=== PATIENT | male | born 1945 | race Caucasian/White ===

== ENCOUNTER 2019-03-10 14:53 | Emergency (ER) | payer MEDICARE, OTHER ==
[~2019-03-10] VITALS: Ht 195.6 cm; Wt 90.7 kg
--- OUTSIDE RECORDS SUMMARY | 2019-03-10 15:02 | XMS REPORT | Continuity of Care Document ---
Author Organization Unknown Address Unknown Allergies There is no data. Medications There is no data. Problems There is no data. Procedures There is no data. Results There is no data. Encounters ACCT No. Visit Date/Time Discharge Status Pt. Type Provider Facility Loc./Unit Complaint [id number] 01/15/2019 14:00:00 01/15/2019 23:59:59 CLS Outpatient SELF, YANET MARLEY [facility]
--- NOTE | 2019-03-10 15:21 | ED General ---
General Stated Complaint: PSYCH EVAL History of Present Illness Date Seen by Provider: Mar 10, 2019 Time Seen by Provider: 15:20 Initial Comments Patient presenting to the emergency department for evaluation of a suicidal comment that occurred earlier today. Patient is quite pleasant and composed and says that his son is going through a great deal of financial difficulty. The patient lives with his son and the patient made the comment to his son "would I just be better off ?" This son called his mother family members and they recommended bringing him to the emergency department. Patient says that this, and was made in the heat of the moment and he has no plan on harming himself. He says that he does have access to firearms however the son took away his firearms after he made this comment. The patient admits he has no need for firearms so this does not particularly bother him. He denies any medical complaints and he is in no obvious distress with normal vital signs. Allergies and Home Medications Patient Home Medication List Home Medication List Reviewed: Yes Review of Systems Review of Systems Constitutional: no symptoms reported Respiratory: no symptoms reported Cardiovascular: no symptoms reported All Other Systems Reviewed Negative Unless Noted: Yes Physical Exam Vital Signs Vital Signs - First Documented 03/10/19 15:35 Temp 96.5 Pulse 67 Resp 18 B/P (MAP) 146/89 (108) Pulse Ox 99 O2 Delivery Room Air Capillary Refill : Height, Weight, BMI Height: '" Weight: lbs. oz. kg; BMI Method: General Appearance: No Apparent Distress, WD/WN HEENT: PERRL/EOMI Neck: Supple Respiratory: No Respiratory Distress Cardiovascular: Regular Rate, Rhythm Gastrointestinal: Soft Back: Normal Inspection Neurologic/Psychiatric: Alert, Oriented x3 Skin: Normal Color, Warm/Dry Progress/Results/Core Measures Suspected Sepsis SIRS Temperature: Pulse: Respiratory Rate: Laboratory Tests 03/10/19 11:50: White Blood Count 7.0 Blood Pressure / Mean: Laboratory Tests 03/10/19 11:50: Creatinine 0.82, Platelet Count 243, Total Bilirubin 1.1H Results/Orders Lab Results Laboratory Tests Test 03/10/19 11:50 03/10/19 16:03 Range/Units White Blood Count 7.0 4.3-11.0 10^3/uL Red Blood Count 5.02 4.35-5.85 10^6/uL Hemoglobin 14.5 13.3-17.7 G/DL Hematocrit 43 40-54 % Mean Corpuscular Volume 86 80-99 FL Mean Corpuscular Hemoglobin 29 25-34 PG Mean Corpuscular Hemoglobin Concent 34 32-36 G/DL Red Cell Distribution Width 13.7 10.0-14.5 % Platelet Count 243 130-400 10^3/uL Mean Platelet Volume 10.3 7.4-10.4 FL Neutrophils (%) (Auto) 72 42-75 % Lymphocytes (%) (Auto) 17 12-44 % Monocytes (%) (Auto) 7 0-12 % Eosinophils (%) (Auto) 2 0-10 % Basophils (%) (Auto) 1 0-10 % Neutrophils # (Auto) 5.0 1.8-7.8 X 10^3 Lymphocytes # (Auto) 1.2 1.0-4.0 X 10^3 Monocytes # (Auto) 0.5 0.0-1.0 X 10^3 Eosinophils # (Auto) 0.2 0.0-0.3 10^3/uL Basophils # (Auto) 0.1 0.0-0.1 10^3/uL Sodium Level 133 L 135-145 MMOL/L Potassium Level 4.2 3.6-5.0 MMOL/L Chloride Level 95 L 98-107 MMOL/L Carbon Dioxide Level 25 21-32 MMOL/L Anion Gap 13 5-14 MMOL/L Blood Urea Nitrogen 9 7-18 MG/DL Creatinine 0.82 0.60-1.30 MG/DL Estimat Glomerular Filtration Rate > 60 BUN/Creatinine Ratio 11 Glucose Level 114 H 70-105 MG/DL Calcium Level 9.8 8.5-10.1 MG/DL Corrected Calcium 9.5 8.5-10.1 MG/DL Total Bilirubin 1.1 H 0.1-1.0 MG/DL Aspartate Amino Transf (AST/SGOT) 13 5-34 U/L Alanine Aminotransferase (ALT/SGPT) 11 0-55 U/L Alkaline Phosphatase 81 40-136 U/L Total Protein 7.1 6.4-8.2 GM/DL Albumin 4.4 3.2-4.5 GM/DL Salicylates Level < 0.3 L 5.0-20.0 MG/DL Acetaminophen Level < 10 L 10-30 UG/ML Serum Alcohol < 10 <10 MG/DL Urine Color YELLOW Urine Clarity CLEAR Urine pH 6.0 5-9 Urine Specific [place] <1.005 1.016-1.022 Urine Protein NEGATIVE NEGATIVE Urine Glucose (UA) NEGATIVE NEGATIVE Urine Ketones NEGATIVE NEGATIVE Urine Nitrite NEGATIVE NEGATIVE Urine Bilirubin NEGATIVE NEGATIVE Urine Urobilinogen 0.2 NORMAL MG/DL Urine Leukocyte Esterase NEGATIVE NEGATIVE Urine RBC (Auto) NEGATIVE NEGATIVE Urine RBC NONE /HPF Urine WBC NONE /HPF Urine Squamous Epithelial Cells RARE /HPF Urine Crystals NONE /LPF Urine Bacteria NONE /HPF Urine Casts NONE /LPF Urine Mucus NEG /LPF Urine Culture Indicated NO Urine Opiates Screen NEGATIVE NEGATIVE Urine Oxycodone Screen NEGATIVE NEGATIVE Urine Methadone Screen NEGATIVE NEGATIVE Urine Propoxyphene Screen NEGATIVE NEGATIVE Urine Barbiturates Screen NEGATIVE NEGATIVE Ur Tricyclic Antidepressants Screen NEGATIVE NEGATIVE Urine Phencyclidine Screen NEGATIVE NEGATIVE Urine Amphetamines Screen NEGATIVE NEGATIVE Urine Methamphetamines Screen NEGATIVE NEGATIVE Urine Benzodiazepines Screen POSITIVE H NEGATIVE Urine Cocaine Screen NEGATIVE NEGATIVE Urine Cannabinoids Screen NEGATIVE NEGATIVE My Orders Orders - SERGE MANNING DO Acetaminophen (03/10/19 15:36) Salicylate (03/10/19 15:36) Ua Culture If Indicated (03/10/19 15:36) Cbc With Automated Diff (03/10/19 15:36) Comprehensive Metabolic Panel (03/10/19 15:36) Alcohol (03/10/19 15:36) Drug Screen Stat (Urine) (03/10/19 15:36) Vital Signs/I&O 03/10/19 15:35 Temp 96.5 Pulse 67 Resp 18 B/P (MAP) 146/89 (108) Pulse Ox 99 O2 Delivery Room Air Capillary Refill : Progress Note : Progress Note Patient is medically cleared from my standpoint we will have the psychiatric services screen him and make further disposition planning. Screener felt patient was safe from psych standpoint so patient will be discharged in stable condition. Departure Impression Primary Impression: Suicidal ideation Disposition: 01 HOME, SELF-CARE Condition: Stable Departure-Patient Inst. Referrals: SELF,YANET OLIVIA (PCP/Family) Primary Care Physician Patient Instructions: Suicide Prevention SERGE MANNING DO Mar 10, 2019 15:21
--- NOTE | 2019-03-10 15:57 | NUR ---
MIC was called for screening. Spoke to Earnest and informed him of pt needing psych eval and what lead pt to coming to ER.
[2019-03-10 16:11] LABS: HEMATOCRIT 43 % (40-54); HEMOGLOBIN 14.5 G/DL (13.3-17.7); MEAN CORPUSCULAR HEMOGLOBIN 29 PG (25-34); MEAN CORPUSCULAR HGB CONC 34 G/DL (32-36); MEAN CORPUSCULAR VOLUME 86 FL (80-99)
[2019-03-10 16:12] LABS: BASOPHILS # (AUTO) 0.1 10^3/uL (0.0-0.1); BASOPHILS % (AUTO) 1 % (0-10); EOSINOPHILS # (AUTO) 0.2 10^3/uL (0.0-0.3); EOSINOPHILS % (AUTO) 2 % (0-10); LYMPHOCYTES # (AUTO) 1.2 X 10^3 (1.0-4.0); LYMPHOCYTES % (AUTO) 17 % (12-44); MEAN PLATELET VOLUME 10.3 FL (7.4-10.4); MONOCYTES # (AUTO) 0.5 X 10^3 (0.0-1.0); MONOCYTES % (AUTO) 7 % (0-12); NEUTROPHILS % (AUTO) 72 % (42-75); PLATELET COUNT 243 10^3/uL (130-400); RED CELL DISTRIBUTION WIDTH 13.7 % (10.0-14.5)
[2019-03-10 16:15] LABS: BILIRUBIN,URINE NEGATIVE (NEGATIVE); CLARITY,URINE CLEAR; COLOR,URINE YELLOW; GLUCOSE, URINE (UA) NEGATIVE (NEGATIVE); KETONES,URINE NEGATIVE (NEGATIVE); LEUKOCYTE ESTERASE ,URINE NEGATIVE (NEGATIVE); NITRITE,URINE NEGATIVE (NEGATIVE); PROTEIN,URINE NEGATIVE (NEGATIVE); SQUAMOUS EPITHELIAL CELL,UR RARE /HPF; UROBILINOGEN,URINE 0.2 MG/DL (NORMAL)
[2019-03-10 16:18] LABS: BUN/CREATININE RATIO 11; CARBON DIOXIDE 25 MMOL/L (21-32); CHLORIDE 95 MMOL/L (98-107); POTASSIUM 4.2 MMOL/L (3.6-5.0); SODIUM 133 MMOL/L (135-145)
[2019-03-10 16:19] LABS: ACETAMINOPHEN < 10 UG/ML (10-30); ALANINE AMINOTRANSFERASE 11 U/L (0-55); ALBUMIN 4.4 GM/DL (3.2-4.5); ALKALINE PHOSPHATASE 81 U/L (40-136); BILIRUBIN,TOTAL 1.1 MG/DL (0.1-1.0); CALCIUM 9.8 MG/DL (8.5-10.1); CREATININE SERUM 0.82 MG/DL (0.60-1.30); GFR ESTIMATED > 60; GLUCOSE 114 MG/DL (70-105); SALICYLATE < 0.3 MG/DL (5.0-20.0); TOTAL PROTEIN 7.1 GM/DL (6.4-8.2)
[2019-03-10 16:20] LABS: BENZODIAZEPINES SCREEN URINE POSITIVE (NEGATIVE)
[2019-03-10 16:21] LABS: AMPHETAMINE SCREEN, URINE NEGATIVE (NEGATIVE); BARBITURATE SCREEN URINE NEGATIVE (NEGATIVE); CANNABINOID SCREEN, URINE NEGATIVE (NEGATIVE); COCAINE SCREEN URINE NEGATIVE (NEGATIVE); METHADONE STAT NEGATIVE (NEGATIVE); METHAMPHETAMINE SCREEN URINE S NEGATIVE (NEGATIVE); OPIATE SCREEN URINE NEGATIVE (NEGATIVE); OXYCODONE STAT NEGATIVE (NEGATIVE); PROPOXYPHENE STAT NEGATIVE (NEGATIVE); TRICYCLIC ANTIDEPRESSANTS SCRE NEGATIVE (NEGATIVE)
--- NOTE | 2019-03-10 16:33 | NUR ---
Up to bathroom, escorted patient to public bathroom in ER.
--- NOTE | 2019-03-10 16:54 | NUR ---
Biju with [facility] called and stated with it being close to 5pm that we will need to call [facility].
--- NOTE | 2019-03-10 16:55 | NUR ---
Pam was called at this time for screening. This RN spoke to Chloe and information about the patient and situation was provided. She stated few patients ahead of pt. She needed labs, medications, and facesheet faxed to [phone]. Tracking number [id number]
--- NOTE | 2019-03-10 18:18 | NUR ---
Rosas with [facility] at [facility] to [facility] Zoom ID [phone]. Pt is currently talking with Rosas via zoom/phone
--- NOTE | 2019-03-10 18:34 | NUR ---
Pt came out of room and said they were done. Pt stated that he is going home and going to get safety plan.
--- NOTE | 2019-03-10 18:55 | NUR ---
Report given to KORINA Sutton at this time. Care was transferred.
[2019-03-10 19:02] VITALS: BP 127/87
== END 2019-03-10 19:02 | disposition home or self-care (01) ==
LOC: EDUNIT# 14:53 → ER FS 14:56
DX: R45.851 Suicidal ideations (principal)
CPT/HCPCS: 36415; 80053; 80306; 80320; 80329; 81000; 85025; 99283

== ENCOUNTER 2021-05-13 09:57 | Emergency (ER) | payer MEDICARE, OTHER ==
[~2021-05-13] VITALS: Ht 197 cm; Wt 105.0 kg
--- OUTSIDE RECORDS SUMMARY | 2021-05-13 10:02 | XMS REPORT | Clinical Summary ---
Author Author [facility] Organization [facility] Address Unknown Phone Unavailable Care Team Providers Care Pr Specialist Name Role Phone Isaac Coppola MD PCP Allergies Not on File Medications End Date Status Medication Sig Dispensed Refills Start Date Active escitalopram oxalate take 1 tablet 1 0 (LEXAPRO) 20 MG tablet by oral route 4 every day Active DULoxetine (CYMBALTA) 60 take 2 tablet 1 0 MG capsule by oral route 4 every day Active metoprolol tartrate take 1.5 90 11 (LOPRESSOR) 50 MG tablet Tablet (75MG) 3 by oral route 2 times every day with meals Active acetaminophen 650 mg Tab take 1 tablet 1 0 (650MG) by 3 oral route every 6 hours as needed Active OLANZapine (ZYPREXA) 5 MG take 1 tablet 1 0 tablet (5MG) by 3 oral route every day Active tamsulosin (FLOMAX) 0.4 take 1 1 0 mg Cp24 Capsule 3 (0.4MG) by oral route every evening 1/2 hour following the same meal each day Active rosuvastatin (CRESTOR) 10 take 1 tablet 1 0 MG tablet (10MG) by 3 oral route every day Active warfarin (COUMADIN) 3 MG take 1 tablet 1 0 tablet (3MG) by 3 oral route every day Active LORazepam (ATIVAN) 2 MG take 1 tablet 1 0 tablet (2MG) by 3 ORAL route 3 times daily as needed Active Problems Not on file Family History Medical History Relation Name Comments Other Father Diagnosed with A-fi b Relation Name Status Comments Father Social History Date Tobacco Use Types Packs/Day Years Used Never Assessed Sex Assigned at Date Recorded Not on file Last Filed Vital Signs Reading Time Taken Comments Vital Sign 120/72 08/21/2014 2:19 PM [facility] Blood Pressure 58 08/21/2014 2:19 PM [facility] Pulse - - Temperature - - Respiratory Rate - - Oxygen Saturation - - Inhaled Oxygen Concentration 106.5 kg (234 lb 12.8 oz) 08/21/2014 2:19 PM [facility] overweight Weight 198.1 cm (6' 6") 08/21/2014 2:19 PM [facility] Height 27.13 08/21/2014 2:19 PM [facility] Body Mass Index Plan of Treatment Health Maintenance Due Date Last Done Comments Td/Tdap# 1945 Zoster Vaccine# (1 of 2) 1995 Fall Risk Assessment # 2010 Pneumococcal Vaccine: 65+ 2010 Years (1 of 1 - PPSV23) Influenza Vaccine (#1) 2021 Results Not on filefrom Last 3 Months
--- NOTE | 2021-05-13 10:15 | ED General ---
General Stated Complaint: GEN WEAKNESS Source of Information: Patient, EMS History of Present Illness Date Seen by Provider: May 13, 2021 Time Seen by Provider: 09:49 Initial Comments 76-year-old male presenting by EMS from home due to generally not feeling well. He states that he has been getting easily winded with minimal exertion. Especially when it is hot outside he does not do very much. He states that the heat makes him feel sick. He denies pain but has been short of breath. He denies fever, chills, swelling in extremities. He had some nausea this am but no vomiting. No diarrhea or change in bowels. No pain with urination. He reports he is here because his son wanted him to do something today and when he told his son he was not feeling up to doing that his son called 911 and had ambulance come to bring him to the ED because he wanted checked for Covid. He has a chronic cough that is no worse than usual. Associated Systoms: No Chest Pain; Cough (chronic and no change from usual); No Diaphoresis, No Fever/Chills, No Headaches; Malaise; No Seizure; Shortness of Air; No Syncope; Weakness (general) Allergies and Home Medications Allergies Coded Allergies: No Known Drug Allergies (Unverified , 05/13/21) Home Medications Azithromycin 250 Mg Tablet, 250 MG PO UD TAKE 2 TABLETS ON DAY ONE THEN TAKE 1 TABLET DAILY FOR FOUR MORE DAYS Prescribed by: YULY JUAREZ on 05/13/211446 Furosemide 40 Mg Tablet, 40 MG PO DAILY Prescribed by: YULY JUAREZ on 05/13/21 144 Potassium Chloride 20 Meq Tablet.er, 20 MEQ PO DAILY Take with Furosemide Prescribed by: YULY JUAREZ on 05/13/21 144 Patient Home Medication List Home Medication List Reviewed: Yes Review of Systems Review of Systems Constitutional: No chills, No fever EENTM: no symptoms reported Respiratory: see HPI Cardiovascular: no symptoms reported Gastrointestinal: no symptoms reported Genitourinary: no symptoms reported Musculoskeletal: no symptoms reported Skin: no symptoms reported Psychiatric/Neurological: No Symptoms Reported Hematologic/Lymphatic: Easy Bleeding (taking Warfarin), Easy Bruising (Taking Warfarin) Past Qmxqxnn-[id number]-Gxxpbj Hx Seasonal Allergies Seasonal Allergies: No Past Medical History Surgeries: No Respiratory: Yes Pulmonary Embolism Cardiac: Yes (Heart attack (he said thats what they called it but no surgery)) Atrial Fibrillation, High Cholesterol, Hypertension Neurological: No Genitourinary: No Gastrointestinal: Yes (GI Bleed) Endocrine: No HEENT: No Cancer: No Psychosocial: Yes Depression Integumentary: No Blood Disorders: No Physical Exam Vital Signs Vital Signs - First Documented 05/13/21 10:00 Temp 36.5 Pulse 80 Resp 18 B/P (MAP) 138/92 (107) Pulse Ox 95 O2 Delivery Room Air Capillary Refill : Height, Weight, BMI Height: 6'5.00" Weight: 200lbs. 0oz. 90.011721wk; BMI Method:Stated General Appearance: No Apparent Distress, WD/WN HEENT: Pharynx Normal Neck: Full Range of Motion, Normal Inspection, Non Tender, Supple Respiratory: Chest Non Tender, No Accessory Muscle Use, No Respiratory Distress, Crackles (bases) Cardiovascular: Normal Peripheral Pulses, Irregularly Irregular Gastrointestinal: Normal Bowel Sounds, No Pulsatile Mass, Non Tender, Soft Rectal: Deferred Extremity: Normal Capillary Refill, Normal Inspection, No Pedal Edema Neurologic/Psychiatric: Alert, Oriented x3, No Motor/Sensory Deficits, security systems sales representative II- XII Norm as Tested Skin: Normal Color, Warm/Dry Progress/Results/Core Measures Suspected Sepsis SIRS Temperature: Pulse: Respiratory Rate: Laboratory Tests 05/13/21 10:11: White Blood Count 7.7 Blood Pressure / Mean: Laboratory Tests 05/13/21 10:11: Creatinine 1.02, INR Comment 2.1H, Platelet Count 279, Total Bilirubin 1.1H Results/Orders Lab Results Laboratory Tests Test 05/13/21 10:11 05/13/21 10:39 Range/Units White Blood Count 7.7 4.3-11.0 10^3/uL Red Blood Count 4.47 4.30-5.52 10^6/uL Hemoglobin 13.1 L 13.3-17.7 g/dL Hematocrit 41 40-54 % Mean Corpuscular Volume 91 80-99 fL Mean Corpuscular Hemoglobin 29 25-34 pg Mean Corpuscular Hemoglobin Concent 32 32-36 g/dL Red Cell Distribution Width 14.1 10.0-14.5 % Platelet Count 279 130-400 10^3/uL Mean Platelet Volume 9.9 9.0-12.2 fL Immature Granulocyte % (Auto) 0 % Neutrophils (%) (Auto) 74 42-75 % Lymphocytes (%) (Auto) 11 L 12-44 % Monocytes (%) (Auto) 12 0-12 % Eosinophils (%) (Auto) 2 0-10 % Basophils (%) (Auto) 1 0-10 % Neutrophils # (Auto) 5.7 1.8-7.8 X 10^3 Lymphocytes # (Auto) 0.9 L 1.0-4.0 X 10^3 Monocytes # (Auto) 0.9 0.0-1.0 X 10^3 Eosinophils # (Auto) 0.1 0.0-0.3 10^3/uL Basophils # (Auto) 0.1 0.0-0.1 10^3/uL Immature Granulocyte # (Auto) 0.0 0.0-0.1 10^3/uL Prothrombin Time 23.5 H 12.2-14.7 SEC INR Comment 2.1 H 0.8-1.4 Activated Partial Thromboplast Time 53 H 24-35 SEC Sodium Level 134 L 135-145 MMOL/L Potassium Level 5.0 3.6-5.0 MMOL/L Chloride Level 95 L 98-107 MMOL/L Carbon Dioxide Level 28 21-32 MMOL/L Anion Gap 11 5-14 MMOL/L Blood Urea Nitrogen 14 7-18 MG/DL Creatinine 1.02 0.60-1.30 MG/DL Estimat Glomerular Filtration Rate 71 BUN/Creatinine Ratio 14 Glucose Level 99 70-105 MG/DL Calcium Level 9.6 8.5-10.1 MG/DL Corrected Calcium 9.3 8.5-10.1 MG/DL Magnesium Level 1.9 1.6-2.4 MG/DL Total Bilirubin 1.1 H 0.1-1.0 MG/DL Aspartate Amino Transf (AST/SGOT) 16 5-34 U/L Alanine Aminotransferase (ALT/SGPT) 13 0-55 U/L Alkaline Phosphatase 89 40-136 U/L Troponin I < 0.30 <0.30 NG/ML Pro-B-Type Natriuretic Peptide 4349.0 H <75.0 PG/ML Total Protein 6.9 6.4-8.2 GM/DL Albumin 4.4 3.2-4.5 GM/DL Lipase 16 8-78 U/L Urine Color YELLOW Urine Clarity CLEAR Urine pH 5.5 5-9 Urine Specific [place] 1.010 L 1.016-1.022 Urine Protein NEGATIVE NEGATIVE Urine Glucose (UA) NEGATIVE NEGATIVE Urine Ketones NEGATIVE NEGATIVE Urine Nitrite NEGATIVE NEGATIVE Urine Bilirubin NEGATIVE NEGATIVE Urine Urobilinogen 0.2 < = 1.0 MG/DL Urine Leukocyte Esterase NEGATIVE NEGATIVE Urine RBC (Auto) NEGATIVE NEGATIVE Urine RBC NONE /HPF Urine WBC 0-2 /HPF Urine Squamous Epithelial Cells 0-2 /HPF Urine Crystals NONE /LPF Urine Bacteria NEGATIVE /HPF Urine Casts PRESENT /LPF Urine Hyaline Casts 0-2 H /LPF Urine Mucus NEGATIVE /LPF Urine Culture Indicated NO My Orders Orders - YULY JUAREZ MD Cbc With Automated Diff (05/13/21 10:06) Magnesium (05/13/21 10:06) Chest 1 View Ap/Pa Only (05/13/21 10:06) Ekg Tracing (05/13/21 10:06) Comprehensive Metabolic Panel (05/13/21 10:06) Protime With Inr (05/13/21 10:06) Partial Thromboplastin Time (05/13/21 10:06) O2 (05/13/21 10:06) Monitor-Rhythm Ecg Trace Only (05/13/21 10:06) Ed Iv/Invasive Line Start (05/13/21 10:06) Lipase (05/13/21 10:06) Ua Culture If Indicated (05/13/21 10:06) Probnp Fs (05/13/21 10:06) Troponin I Fs (05/13/21 10:06) Ct Chest W (05/13/21 10:49) Iohexol Injection (Omnipaque 350 Mg/Ml 1 (05/13/21 12:30) Received Contrast (Hold Metformin- Contr (05/13/21 12:30) Sodium Chloride Flush (Catheter Flush Sy (05/13/21 12:30) Ns (Ivpb) (Sodium Chloride 0.9% Ivpb Bag (05/13/21 12:30) Medications Given in ED Current Medications Medications Dose Ordered Sig/Patty Route Start Time Stop Time Status Last Admin Dose Admin Iohexol 100 ml ONCE ONCE IV 05/13/21 12:30 05/13/21 12:31 DC 05/13/21 12:46 75 ML Sodium Chloride 10 ml NEEDED PRN IV 05/13/21 12:30 05/13/21 14:50 DC 05/13/21 12:46 10 ML Sodium Chloride 100 ml ONCE ONCE IV 05/13/21 12:30 05/13/21 12:31 DC 05/13/21 12:46 100 ML Vital Signs/I&O 05/13/21 05/13/21 10:00 15:00 Temp 36.5 Pulse 80 81 Resp 18 18 B/P (MAP) 138/92 (107) 139/84 Pulse Ox 95 96 O2 Delivery Room Air Room Air Capillary Refill : Progress Note #1: Progress Note Check labs, ECG, CXR, Urine, cardiac enzymes. Differential diagnosis includes pneumonia, CHF exacerbation, myocardial i nfarction, renal failure, electrolyte imbalance Progress Note #2: Progress Note Labs are stable without acute significant malady on his CBC or chemistry. He had no elevation of his white blood cell count. His cardiac enzymes showed elevated proBNP to go along with heart failure. His plain film chest x-ray showed pulmonary edema and questionable mass in the left base. CT was recommended. Updated patient on results and findings and that we will perform a CT scan to evaluate the area in the left base of his lung. Progress Note #3: Progress Note The CT scan came back showing pulmonary edema and unable to completely rule out underlying pneumonia. His possible mass in the left base appeared to be more slightly raised left hemidiaphragm and pleural effusion rather than true mass or tumor. Updated patient on these findings and with his O2 saturation staying in the mid to upper 90% range will start on diuretic and potassium supplement. Since radiology cannot rule out possible underlying pneumonia we will also do a short course of Zithromax or Z-Jan. Counseled on follow-up and return precau tions and stressed importance of see Dr. Bah and or cardiology in the next 1 to 2 weeks. ECG Initial ECG Impression Date: May 13, 2021 Initial ECG Impression Time: 10:03 Initial ECG Rate: 76 Initial ECG Rhythm: A Fib/Flutter Initial ECG Comparisson: No Previous ECG Available Comment Atrial fibrillation with a heart rate of 76 bpm. Borderline prolonged QT interval 428 ms and a QTc interval [address] elevation. No prior tracing available for comparison. Diagnostic Imaging Diagonstic Imaging: Xray Plain Films/CT/US/NM/MRI: chest [facility] [place], [place] NAME: JESUS BOONE REC#: [id number] PT STATUS: REG ER : 1945 PHYSICIAN: YULY JUAREZ MD ADMIT DATE: 05/13/21/ER FS Signed Date of Exam:05/13/21 CHEST 1 VIEW AP/PA ONLY INDICATION: Shortness of breath Portable chest 9:59 AM There is cardiomegaly with pulmonary vascular congestion. There is opacity in the left lower lung of uncertain origin. Mass versus infiltrate are possibilities. IMPRESSION: Pulmonary venous hypertension. Questionable mass versus infiltrate left lower lung. Further evaluation with CT should be considered. Dictated by: Dictated on workstation # [id number] Dict: 05/13/21 1021 Trans: 05/13/21 1145 CVB [id number] Interpreted by: BRIAN LIMA MD Electronically signed by: BRIAN LIMA MD 05/13/21 1145 Reviewed: Reviewed by Wy Diagonstic Imaging: CT Plain Films/CT/US/NM/MRI: chest Comments [facility] [place] [place] NAME: JESUS BOONE [facility] REC#: [id number] PT STATUS: REG ER : 1945 PHYSICIAN: YULY JUAREZ MD ADMIT DATE: 05/13/21/ER FS Signed Date of Exam:05/13/21 CT CHEST W EXAMINATION: CT chest with intravenous contrast. TECHNIQUE: Multiple contiguous axial images were obtained through the chest after the uneventful administration of intravenous contrast. All CT scans use one or more of the following dose optimizing techniques: automated exposure control, MA and/or KvP adjustment based on patient size and exam type or iterative reconstruction. HISTORY: Shortness of breath, lung lesion evaluation. COMPARISON: Chest radiograph 05/13/2021. FINDINGS: Evaluation is limited secondary to patient respiratory motion throughout the exam. Thyroid: The thyroid is normal. Mediastinum: Heart size is normal without significant pericardial effusion. The aorta is normal in caliber. No suspicious lymphadenopathy. Lungs and airways: There are bilateral pleural effusions with adjacent atelectasis or consolidation. There appears to be mild groundglass opacities within the lungs. There is no pneumothorax. The airways are normal. Upper abdomen: The subphrenic structures are normal. Musculoskeletal: Degenerative changes of the spine without suspicious osseous lesion or compression fracture. IMPRESSION: 1. Limited evaluation secondary to respiratory motion. Bilateral pleural effusions with adjacent atelectasis or consolidation. 2. Possible groundglass opacities within the lungs which can be seen with pneumonia. 3. Masslike appearance in the left lung seen on prior radiograph likely corresponds to elevation of the left hemidiaphragm with combination of pleural effusion and consolidation. Dictated by: Dictated on workstation # [id number] Dict: 05/13/21 1300 Trans: 05/13/21 1346 [facility] [id number] Interpreted by: YUSUF LIMA DO Electronically signed by: YUSUF LIMA DO 05/13/21 1346 Reviewed: Reviewed by Me Departure Impression Primary Impression: Dyspnea on exertion Additional Impressions: Congestive heart failure Qualified Codes: I50.9 - Heart failure, unspecified Pulmonary edema with congestive heart failure Disposition: HOME, SELF-CARE Condition: Improved Departure-Patient Inst. Decision time for Depature: 14:48 Referrals: JANNY CHAVIRA MD, MAXWELL MD (PCP/Family) Primary Care Physician Patient Instructions: Heart Failure ED, Shortness of Breath, Adult ED Add. Discharge Instructions: Take the diuretic water pill (Furosemide) to help with fluid on your lungs and improve your breathing. This can lower your potassium so you need to take a potassium supplement with it. Since the radiologist saw fluid on your lungs from the heart failure they could not completely rule out a pneumonia or lung infection causing part of your symptoms too so take the short course of antibiotics to treat for possible lung infection. Check with Dr. Bah this next week and he may have you see Cardiology or have an Echocardiogram (Ultrasound) of your heart to determine the extent of your heart failure. If your symptoms worsen and are not improving with treatment then return otherwise follow up this next week with Dr. Bah. Scripts Potassium Chloride (Potassium Chloride) 20 Meq Tablet.er 20 MEQ PO DAILY for 30 Days, #30 TAB 0 Refills Take with Furosemide Prov: YULY JUAREZ MD 05/13/21 Azithromycin (Azithromycin) 250 Mg Tablet 250 MG PO UD for 5 Days, #6 TAB 0 Refills TAKE 2 TABLETS ON DAY ONE THEN TAKE 1 TABLET DAILY FOR FOUR MORE DAYS Prov: YULY JUAREZ MD 05/13/21 Furosemide (Furosemide) 40 Mg Tablet 40 MG PO DAILY for heart failure for 30 Days, #30 TAB 0 Refills Prov: YULY JUAREZ MD 05/13/21 YULY JUAREZ MD May 13, 2021 10:15
[2021-05-13 10:23] LABS: HEMATOCRIT 41 % (40-54); HEMOGLOBIN 13.1 g/dL (13.3-17.7); MEAN CORPUSCULAR HEMOGLOBIN 29 pg (25-34); MEAN CORPUSCULAR HGB CONC 32 g/dL (32-36); MEAN CORPUSCULAR VOLUME 91 fL (80-99); MEAN PLATELET VOLUME 9.9 fL (9.0-12.2); PLATELET COUNT 279 10^3/uL (130-400); WHITE BLOOD COUNT 7.7 10^3/uL (4.3-11.0)
[2021-05-13 10:24] LABS: BASOPHILS # (AUTO) 0.1 10^3/uL (0.0-0.1); BASOPHILS % (AUTO) 1 % (0-10); EOSINOPHILS # (AUTO) 0.1 10^3/uL (0.0-0.3); EOSINOPHILS % (AUTO) 2 % (0-10); LYMPHOCYTES # (AUTO) 0.9 X 10^3 (1.0-4.0); LYMPHOCYTES % (AUTO) 11 % (12-44); MONOCYTES # (AUTO) 0.9 X 10^3 (0.0-1.0); MONOCYTES % (AUTO) 12 % (0-12); NEUTROPHILS # (AUTO) 5.7 X 10^3 (1.8-7.8); NEUTROPHILS % (AUTO) 74 % (42-75)
--- NOTE | 2021-05-13 10:24 | Diagnostic Imaging Report ---
INDICATION: Shortness of breath Portable chest 9:59 AM There is cardiomegaly with pulmonary vascular congestion. There is opacity in the left lower lung of uncertain origin. Mass versus infiltrate are possibilities. IMPRESSION: Pulmonary venous hypertension. Questionable mass versus infiltrate left lower lung. Further evaluation with CT should be considered. Dictated by: Dictated on workstation # [id number]
[2021-05-13 10:46] LABS: INR 2.1 (0.8-1.4); PROTHROMBIN TIME PATIENT 23.5 SEC (12.2-14.7)
[2021-05-13 10:52] LABS: BACTERIA,URINE NEGATIVE /HPF; BILIRUBIN,URINE NEGATIVE (NEGATIVE); CLARITY,URINE CLEAR; COLOR,URINE YELLOW; GLUCOSE, URINE (UA) NEGATIVE (NEGATIVE); HYALINE CASTS, URINE 0-2 /LPF; KETONES,URINE NEGATIVE (NEGATIVE); LEUKOCYTE ESTERASE ,URINE NEGATIVE (NEGATIVE); NITRITE,URINE NEGATIVE (NEGATIVE); PH,URINE 5.5 (5-9); PROTEIN,URINE NEGATIVE (NEGATIVE); SQUAMOUS EPITHELIAL CELL,UR 0-2 /HPF; WBC,URINE 0-2 /HPF
[2021-05-13 10:54] LABS: SODIUM 134 MMOL/L (135-145)
[2021-05-13 10:55] LABS: BUN/CREATININE RATIO 14; CALCIUM 9.6 MG/DL (8.5-10.1); CARBON DIOXIDE 28 MMOL/L (21-32); CHLORIDE 95 MMOL/L (98-107); CREATININE SERUM 1.02 MG/DL (0.60-1.30); GFR ESTIMATED 71; GLUCOSE 99 MG/DL (70-105)
[2021-05-13 10:57] LABS: ALANINE AMINOTRANSFERASE 13 U/L (0-55); ALBUMIN 4.4 GM/DL (3.2-4.5); BILIRUBIN,TOTAL 1.1 MG/DL (0.1-1.0); LIPASE 16 U/L (8-78); TOTAL PROTEIN 6.9 GM/DL (6.4-8.2)
[2021-05-13 10:58] LABS: ALKALINE PHOSPHATASE 89 U/L (40-136)
[2021-05-13 11:06] LABS: MAGNESIUM 1.9 MG/DL (1.6-2.4)
[2021-05-13] MEDS ORDERED: NS 100 ML (IVPB) BAG IV ONE (12:30)
[2021-05-13] MEDS ORDERED: CATHETER FLUSH 10 ML SYR IV PRN (12:30)
[2021-05-13] MEDS ORDERED: HOLD METFORMIN - RECEIVED CONTRAST 20 ML VIAL IV SCH (12:30)
[2021-05-13] MEDS ORDERED: IOHEXOL 350 MG/ML 100 ML (OMNIPAQUE 350) VIAL IV ONE (12:30)
--- NOTE | 2021-05-13 13:11 | Diagnostic Imaging Report ---
EXAMINATION: CT chest with intravenous contrast. TECHNIQUE: Multiple contiguous axial images were obtained through the chest after the uneventful administration of intravenous contrast. All CT scans use one or more of the following dose optimizing techniques: automated exposure control, MA and/or KvP adjustment based on patient size and exam type or iterative reconstruction. HISTORY: Shortness of breath, lung lesion evaluation. COMPARISON: Chest radiograph 05/13/2021. FINDINGS: Evaluation is limited secondary to patient respiratory motion throughout the exam. Thyroid: The thyroid is normal. Mediastinum: Heart size is normal without significant pericardial effusion. The aorta is normal in caliber. No suspicious lymphadenopathy. Lungs and airways: There are bilateral pleural effusions with adjacent atelectasis or consolidation. There appears to be mild groundglass opacities within the lungs. There is no pneumothorax. The airways are normal. Upper abdomen: The subphrenic structures are normal. Musculoskeletal: Degenerative changes of the spine without suspicious osseous lesion or compression fracture. IMPRESSION: 1. Limited evaluation secondary to respiratory motion. Bilateral pleural effusions with adjacent atelectasis or consolidation. 2. Possible groundglass opacities within the lungs which can be seen with pneumonia. 3. Masslike appearance in the left lung seen on prior radiograph likely corresponds to elevation of the left hemidiaphragm with combination of pleural effusion and consolidation. Dictated by: Dictated on workstation # [id number]
[2021-05-13] MEDS ORDERED: AZIT250T12 PO (14:47)
[2021-05-13] MEDS ORDERED: FURO40TA4 PO (14:47)
[2021-05-13] MEDS ORDERED: POTA-51 PO (14:47)
[2021-05-13 15:00] VITALS: BP 139/84
== END 2021-05-13 14:50 | disposition home or self-care (01) ==
LOC: EDUNIT# 09:57 → ER FS 09:58
DX: I11.0 Hypertensive heart disease with heart failure (principal); I50.1 Left ventricular failure, unspecified; Z79.899 Other long term (current) drug therapy
CPT/HCPCS: 36415; 71045; 71260; 80053; 81000; 83690; 83735; 83880; 84484; 85025; 85610; 85730; 93005; 93041

== ENCOUNTER → 2021-06-10 | Outpatient (CLI) | payer MEDICARE, OTHER ==
[~2021-06-10] MED LIST: AZIT250T12 PO; FURO40TA4 PO; POTA-51 PO
== END ==
LOC: CARD 14:30
PROVIDERS: ATTEND Internal Medicine Cardiovascular Disease
DX: I08.0 Rheumatic disorders of both mitral and aortic valves (principal); I48.0 Paroxysmal atrial fibrillation
CPT/HCPCS: 93306

== ENCOUNTER 2021-06-23 09:49 | Outpatient (CLI) | payer MEDICARE, OTHER ==
[~2021-06-23] VITALS: Ht 196 cm; Wt 104.5 kg
[2021-06-23 09:56] VITALS: BP 109/68
[2021-06-23] MEDS ORDERED: ONDANSETRON 4 MG/2 ML (SDV) Z0FRAN IV PRN (10:00)
[2021-06-23] MEDS ORDERED: CASIRIVIMAB/IMDEVIMAB 1,200 MG in NS (IVPB) 250 ML IV ONE (10:00)
[2021-06-23] MEDS ORDERED: diphenhydrAMINE 50 MG/ML INJ (BENADRYL) IV PRN (10:00)
[2021-06-23] MEDS ORDERED: EPINEPHrine INJECTION 1 MG/ML AMP IM PRN (10:00)
[2021-06-23] MEDS ORDERED: ACETAMINOPHEN 500 MG TAB (TYLENOL) PO PRN (10:00)
[2021-06-23 11:31] VITALS: BP 98/70
== END 2021-06-23 11:30 | disposition home or self-care (01) ==
LOC: INFUSION 09:49
PROVIDERS: ATTEND Nurse Practitioner Family
DX: U07.1 COVID-19 (principal)

== ENCOUNTER 2021-10-02 14:20 | Emergency (ER) | payer MEDICARE, OTHER ==
[~2021-10-02] VITALS: Ht 195.6 cm; Wt 104.0 kg
--- NOTE | 2021-10-02 14:45 | ED Integumentary General ---
General Chief Complaint: Bite-Animal/Human/Insect Stated Complaint: SPIDER BITE Source: patient History of Present Illness Date Seen by Provider: Oct 02, 2021 Time Seen by Provider: 14:22 Initial Comments 76-year-old male presenting with complaint of pain and swelling to the back of his right thigh with concern for spider bite. He states this started around Sunday or Sunday. He saw Dr. Bah about it on Sunday. They did prescribe tramadol which was helping with this pain but did not give him any antibiotic or other treatment. He states that the redness and swelling has gotten worse and he is almost out of his tramadol. He denies any fever or chills. He has localized pain with palpation and movement. He has been soaking bread in vinegar and applying that to the area on his leg and feels that it has been helping. He denies any drainage from the wound. His son kristine some lópez around the redness earlier today. There is a central area of ecchymosis and bruising. He does take warfarin or Coumadin for blood thinner due to heart conditions. Timing/Duration: week Severity: moderate Location: extremities (right posterior thigh) Possible Cause: other (possible spider bite) Modifying Factors: improves with other (applying bread soaked in vinegar helps it feel better per pt report) Associated Symptoms: No blisters; change in skin texture, edema; No fever, No flushing, No headache, No hives, No jaundice, No malaise, No nasal congestion, No numbness, No pallor, No paresthesia, No petechiae, No rash, No sore throat, No tingling Allergies and Home Medications Allergies Coded Allergies: No Known Drug Allergies (Unverified , 05/13/21) Patient Home Medication List Home Medication List Reviewed: Yes Azithromycin (Azithromycin) 250 Mg Tablet, 250 MG PO UD Prescribed by: YULY JUAREZ on 05/13/21 1447 Cephalexin (Cephalexin) 500 Mg Capsule, 500 MG PO TID Prescribed by: YULY JUAREZ on 10/02/21 1509 Furosemide (Furosemide) 40 Mg Tablet, 40 MG PO DAILY Prescribed by: YULY JUAREZ on 05/13/21 1447 Potassium Chloride (Potassium Chloride) 20 Meq Tablet.er, 20 MEQ PO DAILY Prescribed by: YULY JUAREZ on 05/13/21 1447 Tramadol HCl (Tramadol HCl) 50 Mg Tablet, 50 MG PO Q6H PRN for PAIN-SEVERE (8- 10) Prescribed by: YULY JUAREZ on 10/02/21 1509 Review of Systems Review of Systems Constitutional: No chills, No fever EENTM: no symptoms reported Respiratory: no symptoms reported Cardiovascular: no symptoms reported Gastrointestinal: no symptoms reported Genitourinary: no symptoms reported Musculoskeletal: muscle pain (tener to posterior right thigh where he has area of redness and swelling) Skin: see HPI, change in color (redness and bruising to posterior right thigh) Psychiatric/Neurological: No Symptoms Reported Past Ftswksf-Veklkw-Bnrtsf Hx Patient Social History Tobacco Use?: Yes Smokeless Tobacco Frequency: Current Everyday User Seasonal Allergies Seasonal Allergies: No Past Medical History Surgery/Hospitalization HX: Hx CHF and atrial fibrillation Surgeries: No Respiratory: Yes Pulmonary Embolism Cardiac: Yes (Heart attack (he said thats what they called it but no surgery)) Atrial Fibrillation, High Cholesterol, Hypertension Neurological: No Genitourinary: No Gastrointestinal: Yes (GI Bleed) Endocrine: No HEENT: No Cancer: No Psychosocial: Yes Depression Integumentary: No Blood Disorders: No Physical Exam Vital Signs Vital Signs - First Documented 10/02/21 10/02/21 14:23 15:15 Temp 36.5 Pulse 88 Resp 16 B/P (MAP) 134/95 (108) Pulse Ox 99 O2 Delivery Room Air Capillary Refill : General Appearance: WD/WN, no apparent distress Cardiovascular: normal peripheral pulses Extremities: normal range of motion, normal capillary refill, inflammation (redness with bruising to posterior right thigh. no drainage noted. some fluctuance/edema noted) Neurologic/Psychiatric: alert, oriented x 3 Skin: warm/dry, ecchymosis (erythematous area to posterior right thigh with central area of ecchymosis) Skin Problem Location: lower extremities (right posterior thigh) Skin Problem Character: erythema, swelling, tenderness, thickening Procedures/Interventions I&D : Site: right posterior thigh Blade Size: 10 I & D Procedure: sterile dressing applied Progress After obtaining verbal consent from the patient the right posterior thigh was cleaned and prepped with ChloraPrep swabs. Then using 1% plain lidocaine a total of 1 mL was infiltrated subcutaneously. Using a #10 blade scalpel a small incision was made over the center of the erythematous and ecchymotic lesion. There was a small amount of bleeding but no purulent drainage. A wound culture swab was obtained of the bloody fluid that was expressed. Patient tolerated procedure well without any immediate complication. A dressing was applied to hold pressure and help with control of bleeding as patient does take warfarin. A dose of Rocephin 1 g IM was given to start antibiotics on the patient. We will continue with Keflex p.o. and have patient check back with PCP in 2 to 3 days for recheck. Progress/Results/Core Measures Results/Orders My Orders Orders - YULY JUAREZ MD Lidocaine 1% Inj 20 Ml (Xylocaine 1% Inj (10/02/21 14:48) Ceftriaxone (Rocephin) (10/02/21 14:48) Lidocaine 1% Inj 20 Ml (Xylocaine 1% Inj (10/02/21 15:00) Wound Culture (10/02/21 14:48) Medications Given in ED Current Medications Medications Dose Ordered Sig/Patty Route Start Time Stop Time Status Last Admin Dose Admin Lidocaine HCl 2.1 ml ONCE ONCE INJ 10/02/21 15:00 10/02/21 15:01 DC 10/02/21 14:58 2.1 ML Vital Signs/I&O 10/02/21 10/02/21 14:23 15:15 Temp 36.5 Pulse 88 75 Resp 16 15 B/P (MAP) 134/95 (108) 129/86 Pulse Ox 99 O2 Delivery Room Air Room Air Progress Progress Note : Progress Note Advised that we were unable to obtain any purulent drainage from the wound. A culture swab was obtained of the bloody drainage. Started on antibiotics in case there was cellulitis in the thigh. If this is a spider bite and he was starting to get any necrosis in the center of the wound he may need to follow-up with a surgeon for debridement. We will have him check back through the clinic and see how his wound is progressing as he is taking the antibiotics. We will also refill some of the tramadol to help with severe pain. Departure Impression Primary Impression: Cellulitis of right thigh Additional Impression: Spider bite wound Qualified Codes: T63.301A - Toxic effect of unspecified spider venom, accidental (unintentional), initial encounter Disposition: HOME, SELF-CARE Condition: Stable Departure-Patient Inst. Decision time for Depature: 15:04 Referrals: SELF,YANET MD (PCP/Family) Primary Care Physician Patient Instructions: Insect Bites and Stings ED, Cellulitis (Skin Infection), Adult ED, Spider Bites Add. Discharge Instructions: Keep wound from today covered with gauze and dressing for next 1-2 days until it stops bleeding and oozing blood. Take the antibiotic to treat for cellulitis (Skin infection) Check back with Dr. Bah Sunday or Sunday about the wound. If it is not improving he may need you to see a surgeon for surgical wound care All discharge instructions reviewed with patient and/or family. Voiced understanding. Scripts Tramadol HCl (Tramadol HCl) 50 Mg Tablet 50 MG PO Q6H PRN for PAIN-SEVERE (8-10) for 5 Days, #20 TAB 0 Refills Prov: YULY JUAREZ MD 10/02/21 Cephalexin (Cephalexin) 500 Mg Capsule 500 MG PO TID for cellulitis for 7 Days, #21 CAP 0 Refills Prov: YULY JUAREZ MD 10/02/21 YULY JUAREZ MD Oct 02, 2021 14:45
[2021-10-02] MEDS ORDERED: cefTRIAXone 1,000 MG VIAL IM STA (14:48)
[2021-10-02] MEDS ORDERED: LIDOCAINE 1% INJ 20 ML VIAL INJ STA (14:48)
[2021-10-02] MEDS ORDERED: LIDOCAINE 1% INJ 20 ML VIAL INJ ONE (15:00)
[2021-10-02] MEDS ORDERED: CEPH500C PO (15:09)
[2021-10-02] MEDS ORDERED: TRM50T PO (15:09)
[2021-10-02 15:15] VITALS: BP 129/86
== END 2021-10-02 15:15 | disposition home or self-care (01) ==
LOC: EDUNIT# 14:20 → ER FS 14:21
DX: L03.115 Cellulitis of right lower limb (principal); I25.2 Old myocardial infarction; I11.0 Hypertensive heart disease with heart failure; I50.9 Heart failure, unspecified; Z72.0 Tobacco use
CPT/HCPCS: 87070; 87077; 87205; 96372; 99284